=== PATIENT | female | born 1935 | race Caucasian/White ===

== ENCOUNTER 2020-03-23 10:22 | Outpatient (CLI) | payer OTHER ==
[2020-04-02] MEDS ORDERED: LIPITOR40 MG PO (14:25)
[2020-04-02] MEDS ORDERED: PLAVIX75 MG PO (14:25)
[2020-04-02] MEDS ORDERED: METFORMIN HCL1000 M2 PO (14:25)
[2020-04-02] MEDS ORDERED: AVAPRO300 MG PO (14:26)
[2020-04-02] MEDS ORDERED: CHILDREN'S ASPI81 MG PO (14:26)
[2020-04-02] MEDS ORDERED: NORVASC5 MG PO (14:26)
[2020-04-02] MEDS ORDERED: SYNTHROID175 MCG PO (14:26)
== END 2020-03-23 10:31 | disposition home or self-care (01) ==
LOC: RAD 10:22
PROVIDERS: ATTEND Obstetrics & Gynecology
DX: R05 Cough (principal)

== ENCOUNTER → 2020-03-26 10:11 | Outpatient (CLI) | payer OTHER ==
[~2020-03-26 10:11] MED LIST: AVAPRO300 MG PO; CHILDREN'S ASPI81 MG PO; LIPITOR40 MG PO; METFORMIN HCL1000 M2 PO; NORVASC5 MG PO; PLAVIX75 MG PO; SYNTHROID175 MCG PO
== END | disposition home or self-care (01) ==
LOC: LAB 10:11
PROVIDERS: ATTEND Obstetrics & Gynecology
DX: I70.0 Atherosclerosis of aorta (principal); Z20.828 Contact with and (suspected) exposure to other viral communicable diseases; R07.89 Other chest pain

== ENCOUNTER 2020-04-08 08:35 | Inpatient (IN) | payer OTHER ==
[~2020-04-08] VITALS: Ht 144.8 cm; Wt 58.5 kg
== END 2020-04-11 14:48 | disposition home or self-care (01) | DRG 747 ==
LOC: CIR.AMB 08:35 → EDSTATUS 10:45 → CIR.AMB 10:45 → SURH 10:45 → CIR.AMB 11:00 → O/R 16:53 → OB/GYN 16:53
PROVIDERS: Urology; ADMIT Obstetrics & Gynecology; ATTEND Obstetrics & Gynecology
PROC: 0JQC0ZZ Repair Pelvic Region Subcutaneous Tissue and Fascia, Open Approach (ICD-10-PCS; 2020-04-08)
PROC: 0TSD0ZZ Reposition Urethra, Open Approach (ICD-10-PCS; 2020-04-08)
PROC: 0TJB8ZZ Inspection of Bladder, Via Natural or Artificial Opening Endoscopic (ICD-10-PCS; 2020-04-08)
PROC: 0JQC0ZZ Repair Pelvic Region Subcutaneous Tissue and Fascia, Open Approach (ICD-10-PCS; principal; 2020-04-08 11:00)
PROC: 0UQF0ZZ Repair Cul-de-sac, Open Approach (ICD-10-PCS; 2020-04-08 11:00)
DX: N81.5 Vaginal enterocele (principal); N39.3 Stress incontinence (female) (male); N81.6 Rectocele